=== PATIENT | male | born 1960 | race African-American/Black ===

== ENCOUNTER 2018-04-25 03:35 | Inpatient (IN) | payer MEDICARE, MEDICAID ==
[~2018-04-25] VITALS: Ht 189.2 cm; Wt 81.6 kg
[2018-04-25] MEDS ORDERED: MORPHINE SULFATE 4 MG/ML CPJ (NOT FOR IM USE) IV STA (03:58)
[2018-04-25] MEDS ORDERED: SODIUM CHLORIDE 0.9% 1,000 ML IV ONE (03:58)
[2018-04-25] MEDS ORDERED: ONDANSETRON HCL 4MG/2ML INJ IV STA (03:58)
[2018-04-25 04:20] LABS: BASOPHILS % 0.7 % (0.0-2.0); EOSINOPHILS % 0.4 % (0.0-5.0); HEMATOCRIT. 44.4 % (42.0-52.0); HEMOGLOBIN. 14.9 g/dL (14.0-18.0); LYMPHOCYTES % 10.5 % (20.0-50.0); MEAN CORPUSCULAR HEMOGLOBIN 31.1 pg (28.0-32.0); MEAN CORPUSCULAR VOLUME 92.8 fL (80.0-94.0); MEAN PLATELET VOLUME 7.3 fl (7.4-10.4); NEUTROPHILS % 83.4 % (40.0-76.0); PLATELET 269 x1000/uL (130-400); RED BLOOD CELL COUNT 4.78 mill/uL (4.7-6.1); RED CELL DISTRIBUTION WIDTH 14.2 % (11.6-14.6)
[2018-04-25 04:25] LABS: CHLORIDE 104 mEq/L (98-107)
[2018-04-25] MEDS ORDERED: MORPHINE SULFATE 10 MG/ML CPJ IV NR (04:30)
[2018-04-25] MEDS ORDERED: MORPHINE SULFATE 4 MG/ML CPJ (NOT FOR IM USE) IV ONE ×2 (08:00→10:30)
[2018-04-25] MEDS ORDERED: IOHEXOL-300 100 ML BOTTLE ONE (08:29)
[2018-04-25] MEDS ORDERED: MORPHINE SULFATE 10 MG/ML CPJ IV ONE ×2 (08:45→11:04)
[2018-04-25 09:52] LABS: CLARITY URINE CLEAR (CLEAR); COLOR URINE YELLOW (YELLOW); KETONES URINE TRACE (NEGATIVE); LEUKOCYTE ESTERASE URINE NEGATIVE (NEGATIVE); NITRITE URINE NEGATIVE (NEGATIVE); OCCULT BLOOD URINE NEGATIVE (NEGATIVE); PH URINE 7.5 (4.5-8.0); PROTEIN URINE NEGATIVE (NEGATIVE); SPECIFIC GRAVITY URINE 1.064 (1.005-1.030)
[2018-04-25] MEDS ORDERED: LORAZEPAM 2MG/ML CPJ IV PRN ×2 (11:30→15:30)
[2018-04-25] MEDS ORDERED: DIPHENHYDRAMINE 50MG/ML VIAL IV PRN (11:30)
[2018-04-25] MEDS ORDERED: HYDROMORPHONE HCL/PF 2MG/ML CPJ IV PRN (11:30)
[2018-04-25] MEDS ORDERED: IPRATROPIUM/ALBUTEROL 0.5-3(2.5)MG/3ML NEB INH PRN (11:30)
[2018-04-25] MEDS ORDERED: ACETAMINOPHEN 650MG SUPP PR PRN (11:30)
[2018-04-25] MEDS ORDERED: ONDANSETRON HCL 4MG/2ML INJ IV PRN (11:30)
[2018-04-25 13:12] VITALS: BP 145/73
[2018-04-25] MEDS: DEXT 5%/0.45% NACL 1000ML 1,000 ML IV SCH (13:51)
[2018-04-25] MEDS: ENOXAPARIN 40MG/0.4ML SYR SUBCUT SCH (13:52)
[2018-04-25] MEDS ORDERED: HYDRALAZINE 20MG/ML VIAL IV PRN (15:00)
[2018-04-25] MEDS ORDERED: HYDRALAZINE 10 MG in SODIUM CHLORIDE 0.9% 49.5 ML IV PRN (15:00)
[2018-04-25 16:00] VITALS: BP 158/92
[2018-04-25 16:11] LABS: *AMPHETAMINES SCREEN URINE NEGATIVE (NEGATIVE); *BARBITURATES SCREEN URINE NEGATIVE (NEGATIVE); *BENZODIAZEPINES SCREEN URINE NEGATIVE (NEGATIVE); *COCAINE SCREEN URINE PRESUMTIVE POSITIVE (NEGATIVE)
[2018-04-25 16:12] LABS: CANNABINOID URINE SCREEN PRESUMTIVE POSITIVE (NEGATIVE); METHADONE URINE SCREEN NEGATIVE (NEGATIVE); OPIATES URINE SCREEN PRESUMTIVE POSITIVE (NEGATIVE); PHENCYCLIDINE URINE SCREEN NEGATIVE (NEGATIVE)
[2018-04-25] MEDS: NICOTINE 14MG PATCH TD SCH (17:24)
[2018-04-25 20:00] VITALS: BP 147/94
[2018-04-26] VITALS: BP 136/92
[2018-04-26] MEDS: DEXT 5%/0.45% NACL 1000ML 1,000 ML IV SCH ×2 (01:09→14:40)
[2018-04-26 04:00] VITALS: BP 134/91
[2018-04-26 07:33] LABS: PROTHROMBIN TIME 9.6 sec (9.1-11.1)
[2018-04-26 07:39] LABS: BASOPHILS % 0.4 % (0.0-2.0); EOSINOPHILS % 0.9 % (0.0-5.0); HEMATOCRIT. 47.9 % (42.0-52.0); LYMPHOCYTES % 19.9 % (20.0-50.0); MEAN CORPUSCULAR HEMOGLOBIN 31.3 pg (28.0-32.0); MEAN CORPUSCULAR VOLUME 93.4 fL (80.0-94.0); MEAN PLATELET VOLUME 7.8 fl (7.4-10.4); MONOCYTES % 14.5 % (2.0-8.0); NEUTROPHILS % 64.3 % (40.0-76.0); PLATELET 280 x1000/uL (130-400); RED BLOOD CELL COUNT 5.13 mill/uL (4.7-6.1); RED CELL DISTRIBUTION WIDTH 14.2 % (11.6-14.6)
[2018-04-26 08:00] VITALS: BP 137/82
[2018-04-26 08:03] LABS: HEPATITIS B SURFACE ANTIGEN NEGATIVE
[2018-04-26 08:32] LABS: HEPATITIS A AB IGM NEGATIVE (NEGATIVE)
[2018-04-26] MEDS: PANTOPRAZOLE SODIUM 40 MG/VIAL IV SCH (09:00)
[2018-04-26] MEDS: ENOXAPARIN 40MG/0.4ML SYR SUBCUT SCH (09:00)
[2018-04-26] MEDS: NICOTINE 14MG PATCH TD SCH (09:01)
[2018-04-26 09:39] LABS: CHLORIDE 103 mEq/L (98-107)
[2018-04-26 09:49] LABS: LDL CHOLESTEROL 59 mg/dL (5-100)
[2018-04-26 09:50] LABS: HDL CHOLESTEROL 130 mg/dL (40-59); T4 FREE 1.05 ng/dL (0.76-1.46)
[2018-04-26 12:00] VITALS: BP 125/96
[2018-04-26 16:00] VITALS: BP 127/83
[2018-04-26 20:00] VITALS: BP 106/81
[2018-04-27] VITALS: BP 125/59
[2018-04-27] MEDS: DEXT 5%/0.45% NACL 1000ML 1,000 ML IV SCH (01:55)
[2018-04-27 04:00] VITALS: BP 109/69
[2018-04-27 06:27] LABS: HEMOGLOBIN 15.5 g/dL (14.0-18.0); MEAN CORPUSCULAR HEMOGLOBIN 31.4 pg (28.0-32.0); MEAN CORPUSCULAR VOLUME 93.4 fL (80.0-94.0); PLATELET 260 x1000/uL (130-400); RED BLOOD CELL COUNT 4.93 mill/uL (4.7-6.1); RED CELL DISTRIBUTION WIDTH 14.2 % (11.6-14.6)
[2018-04-27 06:36] LABS: CHLORIDE 104 mEq/L (98-107)
[2018-04-27 08:00] VITALS: BP 126/84
[2018-04-27] MEDS: PANTOPRAZOLE SODIUM 40 MG/VIAL IV SCH (09:13)
[2018-04-27] MEDS: ENOXAPARIN 40MG/0.4ML SYR SUBCUT SCH (09:14)
[2018-04-27] MEDS: NICOTINE 14MG PATCH TD SCH (09:14)
[2018-04-27 12:00] VITALS: BP 120/83
[2018-04-27] MEDS ORDERED: POTASSIUM CHLORIDE INJ 40 MEQ in DEXT 5% WATER 500 ML IV NR (12:00)
[2018-04-27 16:00] VITALS: BP 129/72
[2018-04-27 16:17] VITALS: BP 129/72
== END 2018-04-27 17:10 | disposition home or self-care (01) | DRG 388 ==
LOC: ER 03:35 → 6EST 08:33 → EDBEDREQ 10:23 → ENRESERV 10:43
PROVIDERS: ADMIT Internal Medicine; ATTEND Internal Medicine
PROC: 0D9670Z Drainage of Stomach with Drainage Device, Via Natural or Artificial Opening (ICD-10-PCS; principal; 2018-04-25)
DX: K56.50 Intestinal adhesions [bands], unspecified as to partial versus complete obstruction (principal); G92 Toxic encephalopathy; E72.20 Disorder of urea cycle metabolism, unspecified; I10 Essential (primary) hypertension; F17.210 Nicotine dependence, cigarettes, uncomplicated; F10.10 Alcohol abuse, uncomplicated; R74.0 Nonspecific elevation of levels of transaminase and lactic acid dehydrogenase [LDH]; F14.10 Cocaine abuse, uncomplicated; R73.9 Hyperglycemia, unspecified; F19.10 Other psychoactive substance abuse, uncomplicated; K56.41 Fecal impaction; E78.5 Hyperlipidemia, unspecified; Z90.49 Acquired absence of other specified parts of digestive tract; Y92.89 Other specified places as the place of occurrence of the external cause
CPT/HCPCS: 36415; 71045; 74018; 74177; 80048; 80061; 80305; 82140; 83036; 84439; 84443; 85027; 86705; 86709; 86803; 87340; 93970; 96361; 96374; 96375; 96376; 99285; C9113; J1170; J1650; J2270; J2405; J3480; J3490; J7030; J7060; Q9967